=== PATIENT | female | born 1990 | race Caucasian/White ===

== ENCOUNTER 2016-07-29 08:05 | Emergency (ER) | payer OTHER ==
[2016-07-29] MEDS ORDERED: NS 0.9% 1000 ML* 1,000 ML IV ONE (08:26)
--- NOTE | 2016-07-29 08:28 | UC ---
Abdominal Pain Female HPI - History of Current Complaint Chief Complaint: UCAbdominalPain Stated Complaint: RIGHT SIDE PAIN Time Seen by Provider: 07/29/16 08:12 Hx Obtained From: Patient Hx Last Menstrual Period: 07/15/16 ?: No Onset/Duration: Gradual Onset, Lasting Hours Severity Initially: Mild Severity Currently: Moderate Location: Discrete At: RLQ Radiates: No Character: Aching, Sharp Aggravating Factor(s): Movement Alleviating Factor(s): Nothing Associated Signs and Symptoms: Positive: Nausea. Negative: Diaphoresis, Fever, Cough, Chest Pain, Dizzy, Back Pain, Constipation, Blood in Stool, Urinary Symptoms, Vaginal Bleeding, Vaginal Discharge, Vomiting, Diarrhea - Risk Factors Ectopic Risk Factor: Negative Ovarian Torsion Risk Factor: Reproductive Age Allergies/Adverse Reactions: Allergies Allergy/AdvReac Type Severity Reaction Status Date / Time No Known Allergies Allergy Verified 07/29/16 08:14 Home Medications: Home Medications NK [No Home Medications Reported] 07/29/16 [History Confirmed 07/29/16] PMH/Surg Hx/FS Hx/Imm Hx Endocrine History Of: Denies: Diabetes - Surgical History Surgical History: None - Family History Known Family History: Negative: Diabetes - Social History Occupation: Student Alcohol Use: None Substance Use Type: None Smoking Status (MU): Never Smoked Tobacco Review of Systems Gastrointestinal: Negative Genitourinary: Negative All Other Systems Reviewed And Are Negative: Yes Physical Exam Triage Information Reviewed: Yes Appearance: Well-Appearing, No Pain Distress, Well-Nourished Vital Signs: Initial Vital Signs Temp 97.7 F 07/29/16 08:06 Pulse 59 07/29/16 08:06 Resp 16 07/29/16 08:06 BP 118/71 07/29/16 08:06 Pulse Ox 98 07/29/16 08:06 Vital Signs Reviewed: Yes Eye Exam: Normal Eyes: Positive: Conjunctiva Clear. Negative: Conjunctiva Inflamed ENT Exam: Normal ENT: Positive: Normal ENT inspection, Pharynx normal. Negative: Pharyngeal erythema, Nasal congestion Neck exam: Normal Neck: Positive: Supple, Nontender, No Lymphadenopathy Respiratory Exam: Normal Respiratory: Positive: Chest non-tender, Lungs clear, Normal breath sounds, No respiratory distress, No accessory muscle use. Negative: Respiratory distress, Decreased breath sounds, Accessory muscle use Cardiovascular Exam: Normal Cardiovascular: Positive: RRR, No Murmur, Pulses Normal, Brisk Capillary Refill Abdomen Description: Positive: Guarding, Other: - tenderness isolated to Mcburney's point.. Negative: CVA Tenderness (R), CVA Tenderness (L) Musculoskeletal: Positive: Strength Intact, ROM Intact, No Edema Neurological Exam: Normal Neurological: Positive: Alert, Muscle Tone Normal. Negative: Fatigued Psychological Exam: Normal Psychological: Positive: Age Appropriate Behavior Skin Exam: Normal Skin: Negative: rashes - Additional Comments Pelvic exam completed after the ct and external is normal. Internal there is some cottage cheese discharge with cloudy thin discharge. no cervical inflammation or discharge. Bi manual- no uterine, cervical or adenopathy masses or tenderness. abd exam repeated and again her rlq tenderness has improved. Re-Evaluation - Re-Evaluation First Eval Change: Improved - she states she feels better. There has been no intervention thus far. On repeat exam, there is less tenderness RLQ. CT states appendix was visualized and normal. pelvic exam to be done. no hx of std and she is a lesbian. Abd Pain Female Course/Dx - Course Course Of Treatment: we have a long conversation of the possibilities. this could be ovulation pain, missed appendicitis, intermittent torsion and many more possibilities. She is much better now and an serial exams, she is improving. She agrees with the plan of watchful waiting. She is going to seek attention at [facility] or return here in the am for re eval. If symptoms recur or change in any way, she is call [phone] and get to the ED for re eval. she has been told that this could still be serious intraabdominal pathology such as appendicitis and re eval and possible surgical consultation is still not out of the question. she agrees wholeheartedly. - Differential Dx/Diagnosis Differential Diagnosis: Appendicitis, Bowel Obstruction, Constipation, Diverticulitis, Ectopic , Gall Bladder Disease, Hepatitis, Irritable Bowel Syndrome, Ovarian Cyst, Pelvic Inflammatory Disease, Peptic Ulcer Disease , Pneumonia, , Renal Colic, Urinary Tract Infection Provider Diagnoses: rlq abd pain- improved. Discharge - Discharge Plan Condition: Stable Disposition: HOME Patient Education Materials: Abdominal Pain (ED) Additional Instructions: return here or to [facility] tomorrow for re evaluation without fail.
[2016-07-29] MEDS ORDERED: Iohexol 300* (CONTRAST) 10 ML SDV IV ONE (08:49)
--- NOTE | 2016-07-29 11:12 | RAD ---
INDICATION: Right lower quadrant pain and tenderness starting this morning COMPARISON: None TECHNIQUE: Axial source images were obtained from the hemidiaphragms to the symphysis pubis following administration of oral and intravenous contrast. 85 mL Omnipaque 300 was utilized. Coronal and sagittal reconstructed images were acquired. The examination is mildly limited due to a paucity fat planes Lung bases: The lung bases are clear. Liver: The liver is normal in size. There are no masses. There is no ductal dilatation. Gallbladder: There are no calcified gallstones. There is no evidence of wall thickening or pericholecystic fluid. Spleen: The spleen is normal in size. There are no masses. Pancreas: There is no focal pancreatic mass or ductal dilatation. Adrenal glands: There is no evidence of adrenal mass. Kidneys: The kidneys are normal in size and position. There are prompt nephrograms and there is prompt excretion bilaterally. There are no renal parenchymal masses. There is no evidence of nephrolithiasis. Adenopathy: There is no evidence of adenopathy by size criteria. Fluid collections: There is trace free fluid in the cul-de-sac likely representing physiologic free fluid. Vessels:There are no significant atherosclerotic changes involving the aorta. There is no focal aneurysm. The iliac vessels are normal in caliber. The IVC appears normal. GI tract: There are no acute CT bowel findings. There is no obstruction. The stomach and small bowel appear normal. The lower GI tract is normal. The cecum, ileocecal valve, and terminal ileum appear normal. The appendix is visualized and appear normal. The appendix is positioned low in the anterior pelvis Pelvic organs: The uterus and adnexa appear normal. There are multiple follicles bilaterally Bladder: There are no bladder masses. Abdominal and pelvic soft tissues: The extraperitoneal abdominal and pelvic soft tissues appear normal.. Osseous structures: There are no acute osseous findings. Other: None IMPRESSION: NO ACUTE CT FINDINGS. NORMAL APPENDIX. NO MASS OR INFLAMMATORY CHANGES
[2016-07-29 12:28] VITALS: BP 98/53
[2016-07-29 13:54] LABS: Hematocrit 39 % (35-47); Hemoglobin 13.5 g/dl (12.0-16.0); Mean Corpuscular HGB Conc 34 g/dl (31-36); Mean Corpuscular Hemoglobin 30 pg (27-31); Mean Corpuscular Volume 88 fL (80-97); Mean Platelet Volume 8 um3 (7.4-10.4); Red Cell Distribution Width 12 % (10.5-15); White Blood Count 7.8 10^3/ul (3.5-10.8)
[2016-07-29 14:13] LABS: Albumin 4.8 g/dL (3.2-5.2); BUN/Creatinine Ratio 19.2 (8-20); Calcium 9.5 mg/dL (8.6-10.3); EGFR African American 116.7 (>60); EGFR Non-African American 90.7 (>60); Globulin 2.5 g/dL (2-4); Total Bilirubin 0.4 mg/dL (0.2-1.0); Total Protein 7.3 g/dL (6.4-8.9)
== END 2016-07-29 12:30 | disposition home or self-care (01) ==
LOC: UCCORT 08:05
DX: R10.31 Right lower quadrant pain (principal); R11.0 Nausea; Z32.02 Encounter for pregnancy test, result negative
CPT/HCPCS: 36415; 74177; 80053; 81003; 84702; 85025; 87480; 87491; 87510; 87591; 87661; 96360; 99202; G0463; Q9967